=== PATIENT | female | born 1955 | race Caucasian/White ===

== ENCOUNTER 2016-09-24 12:18 | Observation (INO) | payer OTHER ==
[2016-09-24 12:26] VITALS: BP 114/69; PULSE 106; RESP 16; TEMP 97.6; O2SAT 97
[2016-09-24] MEDS ORDERED: SODIUM CHLORIDE 0.9% FLUSH 5 ML FLUSH IVF PRN (12:30)
[2016-09-24] MEDS ORDERED: SODIUM CHLOR 0.9% 1000 ML INJ 1,000 ML IV ONE (12:30)
[2016-09-24] MEDS ORDERED: OMEP20TA PO (13:05)
--- NOTE | 2016-09-24 13:20 | RADRPT ---
EXAM DATE/TIME: 09/24/2016 12:39 [facility] COMPARISON: No previous studies available for comparison. INDICATIONS : Left hip/pelvic pain. MEDICAL HISTORY : None. SURGICAL HISTORY : Tonsillectomy. ENCOUNTER: Initial ACUITY: 1 day PAIN SCORE: 5/10 LOCATION: Left hip/pelvis FINDINGS: A single frontal view of the pelvis demonstrates no evidence of fracture. The bony pelvic ring is in tact. Bony mineralization is normal. The soft tissues are intact. There is a degenerated disc at th e L5-S1 level. CONCLUSION: 1. Degenerated disc at L5-S1. No acute abnormality. Vicente Grover MD on September 24, 2016 at 13:18 Board Certified Radiologist. This report was verified electronically.
--- NOTE | 2016-09-24 13:21 | RADRPT ---
EXAM DATE/TIME: 09/24/2016 12:40 [facility] COMPARISON: PELVIS AP ONLY, September 24, 2016, 12:39. INDICATIONS : Left hip/femur pain post fall MEDICAL HISTORY : None. SURGICAL HISTORY : Tonsillectomy. ENCOUNTER: Initial ACUITY: 1 day PAIN SCORE: 5/10 LOCATION: Left hip/femur FINDINGS: Two view examination of the left femur demonstrates no evidence of fracture or dislocation. Bony min eralization is normal. The soft tissue structures are intact. CONCLUSION: 1. Normal examination of the left femur. Vicente Grover MD on September 24, 2016 at 13:18 Board Certified Radiologist. This report was verified electronically.
[2016-09-24 13:22] LABS: AUTOMATED NEUTROPHIL # 3.7 TH/MM3 (1.8-7.7); BASOPHIL % 0.7 % (0.0-2.0); EOSINOPHIL % 0.6 % (0.0-4.0); HEMATOCRIT 35.5 % (35.0-46.0); LYMPH % 16.3 % (9.0-44.0); LYMPHOCYTE # 0.8 TH/MM3 (1.0-4.8); MEAN CELL VOLUME 108.3 FL (80.0-100.0); MEAN CORPUSCULAR HEMOGLOBIN 36.1 PG (27.0-34.0); MEAN CORPUSCULAR HGB CONC 33.3 % (32.0-36.0); MONO % 9.9 % (0.0-8.0); NEUT % 72.5 % (16.0-70.0); PLATELET COUNT 80 TH/MM3 (150-450); RED BLOOD COUNT 3.27 MIL/MM3 (4.00-5.30); RED CELL DISTRIBUTION WIDTH 15.4 % (11.6-17.2); WHITE BLOOD COUNT 5.1 TH/MM3 (4.0-11.0)
[2016-09-24 13:26] LABS: HEMO FLAGS AUTO DIFF
[2016-09-24 13:46] LABS: ALKALINE PHOSPHATASE 175 U/L (45-117); ALT (GPT) 120 U/L (10-53); ANION GAP 18 MEQ/L (5-15); AST (GOT) 389 U/L (15-37); BICARBONATE 20.2 MEQ/L (21.0-32.0); BLOOD UREA NITROGEN 5 MG/DL (7-18); CHLORIDE 99 MEQ/L (98-107); GLOMERULAR FILTRATION RATE 57 ML/MIN (>89); POTASSIUM 3.1 MEQ/L (3.5-5.1); SODIUM (NA) 137 MEQ/L (136-145); TOTAL BILIRUBIN ADULT 4.7 MG/DL (0.2-1.0)
[2016-09-24 14:12] LABS: BANDS 4 % (0-6); EOSINOPHILS 2 % (0-4); METAMYELOCYTES 1 % (0-1); MYELOCYTES 3 % (0-0); NEUTROPHIL # MANUAL DIFF 4.2 TH/MM3 (1.8-7.7); PLATELET ESTIMATE SMEAR LOW (NORMAL); PLATELET MORPHOLOGY NORMAL (NORMAL); POLYS (SEG NEUTROPHILS) 75 % (16-70); SCAN/DIFF FINAL DIFF MANUAL; WBC DIFF SAMPLE 100
[2016-09-24] MEDS ORDERED: ONDANSETRON HCL 4 MG/2 ML VIAL IV PUSH ONE (15:00)
--- NOTE | 2016-09-24 16:21 | PD ---
HPI Chief Complaint: Fall Time Seen by Provider: 12:20 Travel History International Travel<30 days: No Contact w/Intl Traveler<30days: No Traveled to known affect area: No History of Present Illness HPI 61-year-old female presents from [facility] where she is there for alcohol detox. She is been having frequent falls and multiple episodes of nonbloody emesis. She denies any other concurrent complaints other than left hip pain. Pain is worse with movement. She denies other modifying factors. She states that she has fell from standing. She states she did not hit her head or black out. [facility] Past Medical History Diminished Hearing: No GERD: Yes Past Surgical History Tonsillectomy: Yes Other Surgery: Yes (BREAST IMPLANTS) Social History Alcohol Use: Yes (DAILY VODKA/LAST DRINK X 4 DAYS) Tobacco Use: Yes (1 PPD) Substance Use: No Allergies-Medications (Allergen,Severity, Reaction): Coded Allergies: No Known Allergies (Verified , 03/04/10) Reported Meds & Prescriptions Reported Meds & Active Scripts Active Reported Omeprazole 20 Mg Tab 20 Mg PO DAILY Review of Systems Except as stated in HPI: all other systems reviewed are Neg Physical Exam Narrative GENERAL: Disheveled, well-developed patient. SKIN: Warm and dry. HEAD: Normocephalic and atraumatic. EYES: No injection or drainage. ENT: No nasal drainage noted. NECK: Supple, trachea midline. CARDIOVASCULAR: Regular rate and rhythm RESPIRATORY: No increased effort. No accessory muscle use. GASTROINTESTINAL: Abdomen soft, non-tender, nondistended. EXTREMITIES: No edema.Pain with palpation of left hip, no pain with other joints , neurovascularly intact, no lacerations over, compartments soft. NEUROLOGICAL: Awake and alert. Motor and sensory grossly within normal limits. Normal speech. Data Data Last Documented VS Vital Signs Date Time Temp Pulse Resp B/P Pulse Ox O2 Delivery O2 Flow Rate FiO2 09/24/16 12:26 97.6 106 16 114/69 97 Orders Complete Blood Count With Diff (09/24/16 12:20) Comprehensive Metabolic Panel (09/24/16 12:20) Femur (Ap & Lat/2vws) (09/24/16 12:20) Pelvis, Ap Only (Routine) (09/24/16 12:20) Iv Access Insert/Monitor (09/24/16 12:20) Oximetry (09/24/16 12:20) Ecg Monitoring (09/24/16 12:20) Sodium Chloride 0.9% Flush (Ns Flush) (09/24/16 12:30) Sodium Chlor 0.9% 1000 Ml Inj (Ns 1000 M (09/24/16 12:30) Admit Order (Ed Use Only) (09/24/16 14:52) Us Abdomen Gallbladder (09/24/16 14:52) Ondansetron Inj (Zofran Inj) (09/24/16 15:00) Labs Laboratory Tests Test 09/24/16 13:10 White Blood Count 5.1 TH/MM3 Red Blood Count 3.27 MIL/MM3 Hemoglobin 11.8 GM/DL Hematocrit 35.5 % Mean Corpuscular Volume 108.3 FL Mean Corpuscular Hemoglobin 36.1 PG Mean Corpuscular Hemoglobin 33.3 % Concent Red Cell Distribution Width 15.4 % Platelet Count 80 TH/MM3 Mean Platelet Volume 9.6 FL Neutrophils (%) (Auto) 72.5 % Lymphocytes (%) (Auto) 16.3 % Monocytes (%) (Auto) 9.9 % Eosinophils (%) (Auto) 0.6 % Basophils (%) (Auto) 0.7 % Neutrophils # (Auto) 3.7 TH/MM3 Lymphocytes # (Auto) 0.8 TH/MM3 Monocytes # (Auto) 0.5 TH/MM3 Eosinophils # (Auto) 0.0 TH/MM3 Basophils # (Auto) 0.0 TH/MM3 CBC Comment AUTO DIFF Differential Total Cells 100 Counted Neutrophils % (Manual) 75 % Band Neutrophils % 4 % Lymphocytes % 11 % Monocytes % 4 % Eosinophils % 2 % Neutrophils # (Manual) 4.2 TH/MM3 Metamyelocytes 1 % Myelocytes 3 % Differential Comment FINAL DIFF MANUAL Platelet Estimate LOW Platelet Morphology Comment NORMAL Sodium Level 137 MEQ/L Potassium Level 3.1 MEQ/L Chloride Level 99 MEQ/L Carbon Dioxide Level 20.2 MEQ/L Anion Gap 18 MEQ/L Blood Urea Nitrogen 5 MG/DL Creatinine 0.99 MG/DL Estimat Glomerular Filtration 57 ML/MIN Rate Random Glucose 134 MG/DL Calcium Level 9.2 MG/DL Total Bilirubin 4.7 MG/DL Aspartate Amino Transf 389 U/L (AST/SGOT) Alanine Aminotransferase 120 U/L (ALT/SGPT) Alkaline Phosphatase 175 U/L Total Protein 6.8 GM/DL Albumin 3.1 GM/DL MDM Medical Decision Making Medical Screen Exam Complete: Yes Emergency Medical Condition: Yes Medical Record Reviewed: Yes (past history confirmed) Differential Diagnosis Fracture, strain, sprain, electrolyte abnormality, alcohol withdrawal... Narrative Course Will check blood work and dose with IV fluids and antiemetics and check x-ray imaging and reevaluate Labs reveal elevated bilirubin and hypokalemia without history of this. This is likely related to alcohol use discuss with GI for close follow-up. Patient does not qualify to go back to [facility] at this time so will be admitted for IV fluids, antiemetics and will place order for ultrasound while she is here. She will need continued treatment of her alcohol detox while she is here receiving treatment for her vomiting and falls with elevated bilirubin Physician Communication Physician Communication dr marc agrees to admit dr cardenas will follow, updated advanced practitioner Diagnosis Primary Impression: Elevated bilirubin Additional Impressions: Fall Qualified Code: W19.XXXA - Fall, initial encounter Vomiting Qualified Code: R11.10 - Vomiting, intractability of vomiting not specified, presence of nausea not specified, unspecified vomiting type Admitting Information Admitting Physician Requests: Surekha Lloyd MD Sep 24, 2016 16:21
--- NOTE | 2016-09-24 16:31 | PD.CONS ---
HPI History of Present Illness This is a 61 year old white female with history of chronic heavy alcohol intake presents to [facility] from [facility] for intractable nausea and vomiting for the past few days. States she couldn't keep water down, she was only on ice cubes for for past few days, but was able to tolerate some food yesterday. Reports heavy alcohol intake for the past 8 months. She averages about 1/3 of a 2L vodka bottle daily. She states, she fell sometimes today off her bed and landed on her right side. States, last drink was 6 days ago. She denies hematemesis, abdominal pain, melena or hematochezia. She reports one day history of diarrhea, but no more since she hasn't been eating. Labs revealed Bili of 4.7, AST 389, [id number], ALP 175. US pending. (Alejandra Patino) PFSH Past Medical History none Past Surgical History Breast implants Tonsillectomy (Alejandra Patino) Coded Allergies: No Known Allergies (Verified , 03/04/10) Medications Current Medications Medications (Trade) Dose Ordered Sig/Regina Route Start Time Stop Time Status Last Admin (NS Flush) 2 ml UNSCH PRN IVF 09/24/16 12:30 Family History no family history of liver cancer, or colon cancer Social History Smokes 1 pack a day Heavy alcohol intake for the past 8 months, quit 6 days ago No illicit drug use (Alejandra Patino) Review of Systems Constitutional: COMPLAINS OF: Fatigue, DENIES: Fever, Chills Endocrine: DENIES: Polyuria Eyes: DENIES: Double Vision Ears, nose, mouth, throat: DENIES: Hoarseness Respiratory: DENIES: Shortness of breath Cardiovascular: DENIES: Lower Extremity Edema Gastrointestinal: COMPLAINS OF: Diarrhea, Nausea, Vomiting, Anorexia, DENIES: Abdominal pain, Black stools, Bloody stools, Constipation, Difficulty Swallowing , Odynophagia, Swelling of Abdomen, Heartburn, Hematemesis Genitourinary: DENIES: Hematuria Musculoskeletal: DENIES: Neck pain Hematologic/lymphatic: DENIES: Bruising Immunologic/allergic: DENIES: Eczema Neurologic: DENIES: Abnormal gait Psychiatric: DENIES: Anxiety (Alejandra Patino) GI Exam Vitals I&O Vital Signs Date Time Temp Pulse Resp B/P Pulse Ox O2 Delivery O2 Flow Rate FiO2 09/24/16 12:26 97.6 106 16 114/69 97 Imaging Last Impressions Pelvis X-Ray 09/24/16 1220 Signed Impressions: Service Date/Time: Saturday, September 24, 2016 12:39 - CONCLUSION: 1. Degenerated disc at L5-S1. No acute abnormality. Vicente Grover MD Femur X-Ray 09/24/16 1220 Signed Impressions: Service Date/Time: Saturday, September 24, 2016 12:40 - CONCLUSION: 1. Normal examination of the left femur. Vicente Grover MD Laboratory Test 09/24/16 13:10 White Blood Count 5.1 TH/MM3 Red Blood Count 3.27 MIL/MM3 Hemoglobin 11.8 GM/DL Hematocrit 35.5 % Mean Corpuscular Volume 108.3 FL Mean Corpuscular Hemoglobin 36.1 PG Mean Corpuscular Hemoglobin 33.3 % Concent Red Cell Distribution Width 15.4 % Platelet Count 80 TH/MM3 Mean Platelet Volume 9.6 FL Neutrophils (%) (Auto) 72.5 % Lymphocytes (%) (Auto) 16.3 % Monocytes (%) (Auto) 9.9 % Eosinophils (%) (Auto) 0.6 % Basophils (%) (Auto) 0.7 % Neutrophils # (Auto) 3.7 TH/MM3 Lymphocytes # (Auto) 0.8 TH/MM3 Monocytes # (Auto) 0.5 TH/MM3 Eosinophils # (Auto) 0.0 TH/MM3 Basophils # (Auto) 0.0 TH/MM3 CBC Comment AUTO DIFF Differential Total Cells 100 Counted Neutrophils % (Manual) 75 % Band Neutrophils % 4 % Lymphocytes % 11 % Monocytes % 4 % Eosinophils % 2 % Neutrophils # (Manual) 4.2 TH/MM3 Metamyelocytes 1 % Myelocytes 3 % Differential Comment FINAL DIFF MANUAL Platelet Estimate LOW Platelet Morphology Comment NORMAL Sodium Level 137 MEQ/L Potassium Level 3.1 MEQ/L Chloride Level 99 MEQ/L Carbon Dioxide Level 20.2 MEQ/L Anion Gap 18 MEQ/L Blood Urea Nitrogen 5 MG/DL Creatinine 0.99 MG/DL Estimat Glomerular Filtration 57 ML/MIN Rate Random Glucose 134 MG/DL Calcium Level 9.2 MG/DL Total Bilirubin 4.7 MG/DL Aspartate Amino Transf 389 U/L (AST/SGOT) Alanine Aminotransferase 120 U/L (ALT/SGPT) Alkaline Phosphatase 175 U/L Total Protein 6.8 GM/DL Albumin 3.1 GM/DL Physical Examination HEENT: normocephalic; atraumatic; no jaundice. NECK: Neck is supple, no JVD, no lymphadenopathy. CHEST: Chest is clear to auscultation and percussion. CARDIAC: Regular rate and rhythm with no murmur gallop or rubs. ABDOMEN: Soft, nondistended, nontender; no hepatosplenomegaly; bowel sounds are present in all four quadrants. EXTREMITIES: No clubbing, cyanosis, or edema. SKIN: Normal; no rash; no jaundice. [employer]: No focal deficits; alert and oriented times three. (Alejandra Patino) Assessment and Plan Plan - Elevated transaminitis consistent with alcoholic pattern- chronic heavy alcohol intake presents to [facility] from [facility] for intractable nausea and vomiting for the past few days. States she couldn't keep water down, she was only on ice cubes for for past few days, but was able to tolerate some food yesterday. Reports heavy alcohol intake for the past 8 months. averages 1/3 of a 2L vodka bottle daily. She states, she fell sometimes today off her bed and landing on her right side. States, last drink was 6 days ago. She denies hematemesis, abdominal pain, melena or hematochezia. She reports one day history of diarrhea, but no more since she hasn't been eating. Labs revealed Bili of 4.7, AST 389, [id number], ALP 175. US pending. - Hypokalemia per attending - Alcohol abuse- counselled in regards to cessation Plan: - Await US, if that's negative, can have clears - PARAM, AMA, ASMA, hepatitis panel - Alcohol cessation - LFTs in am - Supportive care - Patient seen and examined by Dr. Rowley and myself and this note is written on his behalf. (Alejandra Patino) Physician Comments Patient was seen and examined, agree with above note and plan, labs for AM ( Iris Rowley MD) Alejandra Patino Sep 24, 2016 16:31 Iris Rowley MD Sep 24, 2016 20:57
--- NOTE | 2016-09-24 17:13 | RADRPT ---
EXAM DATE/TIME: 09/24/2016 15:19 [facility] COMPARISON: No previous studies available for comparison. INDICATIONS : Nausea/vomiting. MEDICAL HISTORY : Gastroesophageal reflux disease. SURGICAL HISTORY : Tonsillectomy. Breast implants. ENCOUNTER: Initial ACUITY: 1 day PAIN SCORE: 4/10 LOCATION: Right upper quadrant MEASUREMENTS: LIVER: 19.4 cm length COMMON DUCT: 6 mm RIGHT KIDNEY: 11.8 x 6.0 x 4.4 cm FINDINGS: LIVER: Mildly heterogeneous echotexture without evidence of focal mass or biliary ductal dilatation. COMMON DUCT: No intraluminal mass or stone visualized. GALLBLADDER: Contains no stones, demonstrates no wall thickening or pericholecystic fluid. PANCREAS: The visualized portions are within normal limits. RIGHT KIDNEY: No evidence of hydronephrosis, stone, or mass. CONCLUSION: Mildly heterogeneous liver. No focal findings. Miguelangel Hernandez MD on September 24, 2016 at 17:10 Board Certified Radiologist. This report was verified electronically.
[2016-09-24] MEDS ORDERED: RESP: ALBUTEROL 2.5 MG/IPRATROPIUM 0.5 MG NEB (PRN) NEB (17:30)
[2016-09-24] MEDS ORDERED: LORazepam 1 MG TAB PO PRN (17:30)
[2016-09-24] MEDS ORDERED: FLUMAZENIL 1 MG/10 ML VIAL IV PUSH PRN (17:30)
[2016-09-24] MEDS ORDERED: LORazepam 2 MG TAB PO PRN (17:30)
[2016-09-24] MEDS ORDERED: ONDANSETRON HCL 4 MG/2 ML VIAL IVP PRN (17:30)
[2016-09-24] MEDS ORDERED: NALOXONE HCL 0.4 MG/ML AMP IV PRN (17:30)
[2016-09-24] MEDS ORDERED: SODIUM CHLORIDE 0.9% FLUSH 5 ML FLUSH FLUSH PRN (17:30)
[2016-09-24] MEDS ORDERED: cloNIDine HCL 0.1 MG TAB PO PRN (17:30)
[2016-09-24] MEDS ORDERED: SODIUM CHLORIDE 0.9% FLUSH 5 ML FLUSH IV FLUSH PRN (17:30)
[2016-09-24] MEDS ORDERED: ACETAMINOPHEN 325 MG TAB PO PRN ×2 (17:30)
[2016-09-24] MEDS ORDERED: LORazepam 2 MG/ML VIAL IV PUSH PRN ×4 (17:30)
[2016-09-24 17:40] VITALS: BP 112/63; PULSE 88; RESP 15; O2SAT 97
--- NOTE | 2016-09-24 17:42 | HHI.HP ---
HPI Service [facility] Hospitalists Primary Care Physician Unknown Admission Diagnosis falls, vomiting Diagnoses: (1) Elevated bilirubin (2) Alcohol abuse (3) Nicotine dependence (4) Transaminitis (5) Fall Chief Complaint: Intractable nausea and vomiting, fall, elevated liver enzymes Travel History International Travel<30 Days: No Contact w/Intl Traveler <30 Da: No Traveled to Known Affected Are: No History of Present Illness 61-year-old female with a history of chronic alcohol abuse, GERD was brought to the ED from [facility] for evaluation of intractable nausea and vomiting several days with associated abdominal pain and noticeable jaundice as well as a fall. Patient reports maybe alcohol intake over the past 8 months and average drink 1/3 of a 2L vodka bottle daily. She states, she fell sometimes today off her bed and landing on her right side. She denies any LOC or head trauma.Since admission to the she has not been drinking any alcohol and this over the past 4-5 days. She has had significant weight loss. Currently she denies any hematemesis, hematochezia or melena. Labs in the ED reveals Labs revealed Bili of 4.7, AST 389, CMU375, ALP 175 fotr which gastroenterology has been consulted Review of Systems Other Other 12 systems reviewed and are negative except for the one mentioned in the history of present illness Past Family Social History Past Medical History GERD Chronic alcohol abuse Nicotinic dependence Past Surgical History Breast implants Tonsillectomy Reported Medications Prilosec Allergies: Coded Allergies: No Known Allergies (Verified , 03/04/10) Family History Father from complication of lung cancer Mother had CVA Social History Smokes 1 pack a day Heavy alcohol intake for the past 8 months, quit 6 days ago No illicit drug use Physical Exam Vital Signs Vital Signs Date Time Temp Pulse Resp B/P Pulse Ox O2 Delivery O2 Flow Rate FiO2 09/24/16 12:26 97.6 106 16 114/69 97 Physical Exam GENERAL: This is a well-nourished, well-developed patient, in no apparent distress. SKIN: No rashes, ecchymoses or lesions. Cool and dry. HEAD: Atraumatic. Normocephalic. No temporal or scalp tenderness. EYES: Pupils equal round and reactive. Extraocular motions intact. No scleral icterus. No injection or drainage. ENT: Nose without bleeding, purulent drainage or septal hematoma. Throat without erythema, tonsillar hypertrophy or exudate. Uvula midline. Airway patent. NECK: Trachea midline. No JVD or lymphadenopathy. Supple, nontender, no meningeal signs. CARDIOVASCULAR: Regular rate and rhythm without murmurs, gallops, or rubs. RESPIRATORY: Clear to auscultation. Breath sounds equal bilaterally. No wheezes , rales, or rhonchi. GASTROINTESTINAL: Abdomen soft, non-tender, nondistended. No hepato-splenomegaly , or palpable masses. No guarding. MUSCULOSKELETAL: Extremities without clubbing, cyanosis, or edema. No joint tenderness, effusion, or edema noted. No calf tenderness. Negative Homans sign bilaterally. NEUROLOGICAL: Awake and alert. Cranial nerves II through XII intact. Motor and sensory grossly within normal limits. Five out of 5 muscle strength in all muscle groups. Normal speech. Laboratory Laboratory Tests Test 09/24/16 13:10 White Blood Count 5.1 Red Blood Count 3.27 Hemoglobin 11.8 Hematocrit 35.5 Mean Corpuscular Volume 108.3 Mean Corpuscular Hemoglobin 36.1 Mean Corpuscular Hemoglobin 33.3 Concent Red Cell Distribution Width 15.4 Platelet Count 80 Mean Platelet Volume 9.6 Neutrophils (%) (Auto) 72.5 Lymphocytes (%) (Auto) 16.3 Monocytes (%) (Auto) 9.9 Eosinophils (%) (Auto) 0.6 Basophils (%) (Auto) 0.7 Neutrophils # (Auto) 3.7 Lymphocytes # (Auto) 0.8 Monocytes # (Auto) 0.5 Eosinophils # (Auto) 0.0 Basophils # (Auto) 0.0 CBC Comment AUTO DIFF Differential Total Cells 100 Counted Neutrophils % (Manual) 75 Band Neutrophils % 4 Lymphocytes % 11 Monocytes % 4 Eosinophils % 2 Neutrophils # (Manual) 4.2 Metamyelocytes 1 Myelocytes 3 Differential Comment FINAL DIFF MANUAL Platelet Estimate LOW Platelet Morphology Comment NORMAL Sodium Level 137 Potassium Level 3.1 Chloride Level 99 Carbon Dioxide Level 20.2 Anion Gap 18 Blood Urea Nitrogen 5 Creatinine 0.99 Estimat Glomerular Filtration 57 Rate Random Glucose 134 Calcium Level 9.2 Total Bilirubin 4.7 Aspartate Amino Transf 389 (AST/SGOT) Alanine Aminotransferase 120 (ALT/SGPT) Alkaline Phosphatase 175 Total Protein 6.8 Albumin 3.1 Result Diagram: 09/24/16 1310 09/24/16 1310 Imaging Last Impressions Pelvis X-Ray 09/24/16 1220 Signed Impressions: Service Date/Time: Saturday, September 24, 2016 12:39 - CONCLUSION: 1. Degenerated disc at L5-S1. No acute abnormality. Vicente Grover MD Femur X-Ray 09/24/16 1220 Signed Impressions: Service Date/Time: Saturday, September 24, 2016 12:40 - CONCLUSION: 1. Normal examination of the left femur. Vicente Grover MD Assessment and Plan Problem List: (1) Transaminitis ICD Code: R74.0 Status: Acute (2) Alcohol abuse ICD Code: F10.10 Status: Acute (3) Nicotine dependence ICD Code: F17.200 Status: Acute (4) Fall ICD Code: W19.XXXA Status: Acute (5) Metabolic acidosis ICD Code: E87.2 Status: Acute Assessment and Plan 61-year-old female with 1-Transaminitis: Patient with a history of Heavy alcohol abuse, abdominal ultrasound pending. Gastroenterology has been consulted and PARAM, AMA, ASMA, hepatitis panel pending. Continue conservative treatment 2-Intractable nausea and vomiting: Abdominal ultrasound and if negative start clears. Gentle IV fluid hydration. Treatment with antiemetic 3-Alcohol abuse: Counseled to quit, start Rally pack, CIWS per protocol, seizure precaution 4-Tobacco abuse: Counseled to quit, start nicotinic patch 5-Fall: s/p Mechanical fall. Pelvic and femur x-ray noted and reviewed by me without any finding of fracture. PT consult and fall precaution 6-Hypokalemia: Replace electrolyte and monitor 7-Metabolic acidosis: Consider Bicarb tx if no improvement 8-GERD: PPI 9-DVT prophylaxis: Bilateral SCDs Code Status Full code Discussed Condition With Patient, , ED physician Problem Qualifiers (1) Fall: Qualified Code: W19.XXXA - Fall, initial encounter Emeka Silva MD Sep 24, 2016 17:42
[2016-09-24] MEDS: POTASSIUM CHLOR 20 MEQ PREMIX 100 ML IV SCH ×2 (18:56→21:19)
[2016-09-24] MEDS: SODIUM CHLOR 0.9% 1000 ML INJ 1,000 ML IV SCH (18:56)
[2016-09-24] MEDS ORDERED: SODIUM CHLORIDE 0.9% FLUSH 5 ML FLUSH FLUSH SCH (21:00)
[2016-09-24] MEDS: SODIUM CHLORIDE 0.9% FLUSH 5 ML FLUSH IV FLUSH SCH (21:07)
[2016-09-24] MEDS: NICOTINE 21 MG/24 HR PATCH TD SCH (22:07)
[2016-09-24 23:13] VITALS: BP 140/79; PULSE 86; RESP 16; TEMP 96; O2SAT 100
[2016-09-25] VITALS (7 sets, daily range): BP systolic 115–159; BP diastolic 73–80; PULSE 80–109; RESP 16–20; TEMP 96.3–98.4; O2SAT 96–100
[2016-09-25 07:51] LABS: AUTOMATED NEUTROPHIL # 2.5 TH/MM3 (1.8-7.7); BASOPHIL % 0.9 % (0.0-2.0); EOSINOPHIL % 1.3 % (0.0-4.0); HEMATOCRIT 32.2 % (35.0-46.0); LYMPH % 20.3 % (9.0-44.0); LYMPHOCYTE # 0.8 TH/MM3 (1.0-4.8); MEAN CELL VOLUME 107.2 FL (80.0-100.0); MEAN CORPUSCULAR HEMOGLOBIN 36.6 PG (27.0-34.0); MEAN CORPUSCULAR HGB CONC 34.2 % (32.0-36.0); MONO % 9.5 % (0.0-8.0); PLATELET COUNT 64 TH/MM3 (150-450); RED CELL DISTRIBUTION WIDTH 14.9 % (11.6-17.2); WHITE BLOOD COUNT 3.7 TH/MM3 (4.0-11.0)
--- NOTE | 2016-09-25 07:56 | HHI.PR ---
Subjective Remarks Follow up Transaminitis/Intractable nausea and vomiting/alcohol abuse 09/25/16-patient seen and examined; she did tolerate clears last night. alert and oriented x 3; no acute event overnight. Afebrile Objective Vitals Vital Signs Date Time Temp Pulse Resp B/P Pulse Ox O2 Delivery O2 Flow Rate FiO2 09/25/16 03:57 97.6 80 20 141/74 100 09/25/16 00:14 96.3 88 18 142/76 99 09/24/16 23:13 96.0 86 16 140/79 100 09/24/16 17:40 88 15 112/63 97 Room Air 09/24/16 12:26 97.6 106 16 114/69 97 Result Diagram: 09/24/16 1310 09/24/16 1310 Imaging Last Impressions Gall Bladder Ultrasound 09/24/16 1452 Signed Impressions: Service Date/Time: Saturday, September 24, 2016 15:19 - CONCLUSION: Mildly heterogeneous liver. No focal findings. Miguelangel Hernandez MD Pelvis X-Ray 09/24/16 1220 Signed Impressions: Service Date/Time: Saturday, September 24, 2016 12:39 - CONCLUSION: 1. Degenerated disc at L5-S1. No acute abnormality. Vicente Grover MD Femur X-Ray 09/24/16 1220 Signed Impressions: Service Date/Time: Saturday, September 24, 2016 12:40 - CONCLUSION: 1. Normal examination of the left femur. Vicente Grover MD Objective Remarks GENERAL: NAD SKIN: Warm and dry. HEAD: Normocephalic. EYES: No scleral icterus. No injection or drainage. NECK: Supple, trachea midline. No JVD or lymphadenopathy. CARDIOVASCULAR: Regular rate and rhythm without murmurs, gallops, or rubs. RESPIRATORY: Breath sounds equal bilaterally. No accessory muscle use. GASTROINTESTINAL: Abdomen soft, non-tender, nondistended. MUSCULOSKELETAL: No cyanosis, or edema. BACK: Nontender without obvious deformity. No CVA tenderness. A/P Problem List: (1) Transaminitis ICD Code: R74.0 Status: Acute (2) Alcohol abuse ICD Code: F10.10 Status: Acute (3) Nicotine dependence ICD Code: F17.200 Status: Chronic (4) Fall ICD Code: W19.XXXA Status: Acute (5) Metabolic acidosis ICD Code: E87.2 Status: Acute Assessment and Plan 61-year-old female with 1-Transaminitis: Patient with a history of Heavy alcohol abuse, abdominal ultrasound negative. Appreciate input from Gastroenterology. PARAM, AMA, ASMA, hepatitis panel pending. Continue conservative treatment 2-Intractable nausea and vomiting: Resolved. Abdominal ultrasound unremarkable. Advance diet to Full Liquid. Gentle IV fluid hydration. Treatment with antiemetic 3-Alcohol abuse: Counseled to quit, continue Rally pack, CIWS per protocol, seizure precaution 4-Tobacco abuse: Counseled to quit, on nicotinic patch 5-Fall: s/p Mechanical fall. Pelvic and femur x-ray without any finding of fracture. PT consult and fall precaution 6-Hypokalemia: Replace electrolyte and monitor. BMP pending 7-Metabolic acidosis: BMP pending and Consider Bicarb tx if no improvement 8-GERD: PPI 9-DVT prophylaxis: Bilateral SCDs Likely discharge to today Problem Qualifiers (1) Fall: Qualified Code: W19.XXXA - Fall, initial encounter Emeka Silva MD Sep 25, 2016 07:56
[2016-09-25 08:08] LABS: HEMO FLAGS AUTO DIFF
[2016-09-25 08:33] LABS: ALKALINE PHOSPHATASE 145 U/L (45-117); ALT (GPT) 113 U/L (10-53); ANION GAP 16 MEQ/L (5-15); AST (GOT) 302 U/L (15-37); BICARBONATE 20.6 MEQ/L (21.0-32.0); BLOOD UREA NITROGEN 4 MG/DL (7-18); CHLORIDE 105 MEQ/L (98-107); GLOMERULAR FILTRATION RATE 102 ML/MIN (>89); SODIUM (NA) 142 MEQ/L (136-145); TOTAL BILIRUBIN ADULT 3.4 MG/DL (0.2-1.0)
[2016-09-25 08:42] LABS: POTASSIUM 2.8 MEQ/L (3.5-5.1)
[2016-09-25] MEDS ORDERED: POTASSIUM CHLORIDE 20 MEQ CONTROLLED RELEASE TAB PO ONE (09:00)
[2016-09-25] MEDS ORDERED: POTASSIUM CHLORIDE 25 MEQ EFFERVESCENT TAB PO ONE (09:00)
[2016-09-25] MEDS: SODIUM CHLORIDE 0.9% FLUSH 5 ML FLUSH IV FLUSH SCH ×2 (09:00→21:00)
[2016-09-25 09:09] LABS: BANDS 9 % (0-6); EOSINOPHILS 1 % (0-4); MYELOCYTES 2 % (0-0); PLATELET ESTIMATE SMEAR LOW (NORMAL); PLATELET MORPHOLOGY NORMAL (NORMAL); POLYS (SEG NEUTROPHILS) 70 % (16-70); SCAN/DIFF FINAL DIFF MANUAL; WBC DIFF SAMPLE 100
[2016-09-25] MEDS: FOLIC ACID 1 MG TAB PO SCH (09:16)
[2016-09-25] MEDS: MULTIVITAMINS/MINERALS THERAPEUTIC TAB PO SCH (09:16)
[2016-09-25] MEDS: THIAMINE HCL 100 MG TAB PO SCH (09:16)
[2016-09-25] MEDS: PANTOPRAZOLE SODIUM 40 MG VIAL IV PUSH SCH (09:17)
[2016-09-25] MEDS: NICOTINE 21 MG/24 HR PATCH TD SCH (09:40)
--- NOTE | 2016-09-25 12:33 | HHI.GIFU ---
Subjective Remarks Resting in bed. C/O feeling "foggy/loopy." No n/v. No abdominal pain. ( Michelle Lagos) Objective Vitals I&O Vital Signs Date Time Temp Pulse Resp B/P Pulse Ox O2 Delivery O2 Flow Rate FiO2 09/25/16 09:56 97.8 87 16 159/80 99 09/25/16 03:57 97.6 80 20 141/74 100 09/25/16 00:14 96.3 88 18 142/76 99 09/24/16 23:13 96.0 86 16 140/79 100 09/24/16 17:40 88 15 112/63 97 Room Air Laboratory Laboratory Tests Test 09/24/16 09/24/16 09/25/16 13:10 17:30 06:47 White Blood Count 5.1 3.7 Red Blood Count 3.27 3.00 Hemoglobin 11.8 11.0 Hematocrit 35.5 32.2 Mean Corpuscular Volume 108.3 107.2 Mean Corpuscular Hemoglobin 36.1 36.6 Mean Corpuscular Hemoglobin 33.3 34.2 Concent Red Cell Distribution Width 15.4 14.9 Platelet Count 80 64 Mean Platelet Volume 9.6 9.7 Neutrophils (%) (Auto) 72.5 68.0 Lymphocytes (%) (Auto) 16.3 20.3 Monocytes (%) (Auto) 9.9 9.5 Eosinophils (%) (Auto) 0.6 1.3 Basophils (%) (Auto) 0.7 0.9 Neutrophils # (Auto) 3.7 2.5 Lymphocytes # (Auto) 0.8 0.8 Monocytes # (Auto) 0.5 0.4 Eosinophils # (Auto) 0.0 0.0 Basophils # (Auto) 0.0 0.0 CBC Comment AUTO DIFF AUTO DIFF Differential Total Cells 100 100 Counted Neutrophils % (Manual) 75 70 Band Neutrophils % 4 9 Lymphocytes % 11 15 Monocytes % 4 3 Eosinophils % 2 1 Neutrophils # (Manual) 4.2 3.0 Metamyelocytes 1 Myelocytes 3 2 Differential Comment FINAL DIFF FINAL DIFF MANUAL MANUAL Platelet Estimate LOW LOW Platelet Morphology Comment NORMAL NORMAL Sodium Level 137 142 Potassium Level 3.1 2.8 Chloride Level 99 105 Carbon Dioxide Level 20.2 20.6 Anion Gap 18 16 Blood Urea Nitrogen 5 4 Creatinine 0.99 0.60 Estimat Glomerular Filtration 57 102 Rate Random Glucose 134 65 Calcium Level 9.2 8.4 Total Bilirubin 4.7 3.4 Aspartate Amino Transf 389 302 (AST/SGOT) Alanine Aminotransferase 120 113 (ALT/SGPT) Alkaline Phosphatase 175 145 Total Protein 6.8 5.9 Albumin 3.1 2.6 Hepatitis A IgM Antibody NEGATIVE Hepatitis B Surface Antigen NEGATIVE Hepatitis B Core IgM Antibody NEGATIVE Hepatitis C Antibody NEGATIVE Red Cell Morphology Comment Imaging Last Impressions Gall Bladder Ultrasound 09/24/16 1452 Signed Impressions: Service Date/Time: Saturday, September 24, 2016 15:19 - CONCLUSION: Mildly heterogeneous liver. No focal findings. Miguelangel Hernandez MD Pelvis X-Ray 09/24/16 1220 Signed Impressions: Service Date/Time: Saturday, September 24, 2016 12:39 - CONCLUSION: 1. Degenerated disc at L5-S1. No acute abnormality. Vicente Grover MD Femur X-Ray 09/24/16 1220 Signed Impressions: Service Date/Time: Saturday, September 24, 2016 12:40 - CONCLUSION: 1. Normal examination of the left femur. Vicente Grover MD Physical Exam HEENT: Normocephalic; atraumatic; jaundice. Throat is clear. NECK: Neck is supple, no JVD, no lymphadenopathy. CHEST: CTA CARDIAC: Regular rate and rhythm with no murmur gallop or rubs. ABDOMEN: Soft, nondistended, mild ruq tenderness; hepatosplenomegaly; bowel sounds are present in all four quadrants. EXTREMITIES: No clubbing, cyanosis, or edema. SKIN: Normal; no rash; no jaundice. 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 (Michelle Lagos) Assessment and Plan Plan ASSESSMENT: - Alcoholic hepatitis, elevated lfts. Pt with hx of chronic heavy alcohol intake presents to [facility] from [facility] for intractable nausea and vomiting. Reports heavy alcohol intake for the past 8 months. averages 1/3 of a 2L vodka bottle daily. Gall Bladder Ultrasound (09/24/16)---> Mildly heterogeneous liver. Hepatitis negative. PARAM/AMA/ASMA pending. LFTs improved today, T. Bili 3.4, AST 302, ALT 113, Alk Phosph 145. - C/O Fogginess/loopiness, frequent falls. Unclear if this is related to DT's vs. hepatic encephalopathy vs. other. Will check ammonia and start on Lactulose daily and adjust accordingly. - N/V. Resolved. - Hypokalemia per attending - Alcohol abuse- counselled in regards to cessation Plan: - ROXIE - Ammonia level - Lactulose 30mL po daily - PT/INR today - Await PARAM, AMA, ASMA - LFTs in am - D/W pt, , and daughter importance of complete etoh cessation and plan from GI standpoint - Supportive care - Patient seen and examined by Dr. Rowley and myself and this note is written on his behalf. (Michelle Lagos) Physician Comments Patient was seen and examined, agree with above note and plan, avoid ETOH ( Iris Rowley MD) Michelle Lagos Sep 25, 2016 12:33 Iris Rowley MD Sep 25, 2016 20:13
[2016-09-25 17:02] LABS: PROTHROMBIN TIME - PATIENT 11.1 SEC (9.8-11.6)
[2016-09-25] MEDS: LACTULOSE SYRUP 20 GM/30 ML CUP PO SCH (17:06)
[2016-09-25] MEDS: SODIUM CHLOR 0.9% 1000 ML INJ 1,000 ML IV SCH (17:49)
[2016-09-26] VITALS (7 sets, daily range): BP systolic 115–136; BP diastolic 70–80; PULSE 61–102; RESP 16–20; TEMP 96.8–98.2; O2SAT 95–99
--- NOTE | 2016-09-26 08:49 | HHI.PR ---
Subjective Remarks Follow up Transaminitis/Intractable nausea and vomiting/alcohol abuse 09/25/16-patient seen and examined; she did tolerate clears last night. alert and oriented x 3; no acute event overnight. Afebrile 09/26/16-patient seen and examined;. Of confusion overnight and agitation for which she was given Ativan. This morning patient's lethargic however arousable. Afebrile. Objective Vitals Vital Signs Date Time Temp Pulse Resp B/P Pulse Ox O2 Delivery O2 Flow Rate FiO2 09/26/16 00:06 98.0 101 20 135/70 96 09/25/16 19:12 97.9 109 16 115/77 98 09/25/16 15:58 98.0 97 16 131/73 96 09/25/16 13:36 93 152/76 100 09/25/16 12:51 98.4 80 16 133/80 98 09/25/16 09:56 97.8 87 16 159/80 99 I/O 09/25/16 09/25/16 09/25/16 09/26/16 09/26/16 09/26/16 07:00 15:00 23:00 07:00 15:00 23:00 Intake Total 1100 ml Balance 1100 ml Intake Oral 1040 ml IV Total 60 ml # Voids 2 5 # Bowel Movements 2 Result Diagram: 09/25/16 0647 09/25/16 0647 Objective Remarks GENERAL: NAD SKIN: Warm and dry. HEAD: Normocephalic. EYES: No scleral icterus. No injection or drainage. NECK: Supple, trachea midline. No JVD or lymphadenopathy. CARDIOVASCULAR: Regular rate and rhythm without murmurs, gallops, or rubs. RESPIRATORY: Breath sounds equal bilaterally. No accessory muscle use. GASTROINTESTINAL: Abdomen soft, non-tender, nondistended. MUSCULOSKELETAL: No cyanosis, or edema. BACK: Nontender without obvious deformity. No CVA tenderness. A/P Problem List: (1) Transaminitis ICD Code: R74.0 Status: Acute (2) Alcohol abuse ICD Code: F10.10 Status: Acute (3) Nicotine dependence ICD Code: F17.200 Status: Chronic (4) Fall ICD Code: W19.XXXA Status: Acute (5) Metabolic acidosis ICD Code: E87.2 Status: Acute (6) Hyperammonemia ICD Code: E72.20 Status: Acute Assessment and Plan 61-year-old female with 1-Transaminitis: Patient with a history of Heavy alcohol abuse, abdominal ultrasound negative. Appreciate input from Gastroenterology. PARAM, AMA, ASMA pending, hepatitis panel negative. Continue conservative treatment 2-Intractable nausea and vomiting: Resolved. Abdominal ultrasound unremarkable. Continue with healthy diet and Gentle IV fluid hydration. Treatment with antiemetic 3-Alcohol abuse: Counseled to quit, continue Rally pack, CIWS per protocol, seizure precaution 4-Tobacco abuse: Counseled to quit, on nicotinic patch 5-Fall: s/p Mechanical fall. Pelvic and femur x-ray without any finding of fracture. PT to treat and fall precaution 6-Hypokalemia: Replace electrolyte and monitor. BMP pending 7-Metabolic acidosis: Improving ;BMP pending this a.m. and Consider Bicarb tx if no improvement 8-GERD: PPI 9-DVT prophylaxis: Bilateral SCDs 10-Mild Hyperammonemia: Continue with lactulose 30 mg daily and monitor ammonia level Problem Qualifiers (1) Fall: Qualified Code: W19.XXXA - Fall, initial encounter Emeka Silva MD Sep 26, 2016 08:49
[2016-09-26] MEDS: MULTIVITAMINS/MINERALS THERAPEUTIC TAB PO SCH (09:39)
[2016-09-26] MEDS: THIAMINE HCL 100 MG TAB PO SCH (09:39)
[2016-09-26] MEDS: FOLIC ACID 1 MG TAB PO SCH (09:39)
[2016-09-26] MEDS: NICOTINE 21 MG/24 HR PATCH TD SCH (09:40)
[2016-09-26] MEDS: PANTOPRAZOLE SODIUM 40 MG VIAL IV PUSH SCH (09:40)
[2016-09-26] MEDS: LACTULOSE SYRUP 20 GM/30 ML CUP PO SCH ×2 (09:40→22:42)
[2016-09-26] MEDS: SODIUM CHLORIDE 0.9% FLUSH 5 ML FLUSH IV FLUSH SCH ×2 (09:41→21:00)
[2016-09-26 11:28] LABS: ANA SCREEN NEG (NEG)
[2016-09-26 12:20] LABS: AUTOMATED NEUTROPHIL # 2.5 TH/MM3 (1.8-7.7); BASOPHIL % 0.9 % (0.0-2.0); EOSINOPHIL # 0.1 TH/MM3 (0-0.4); EOSINOPHIL % 1.7 % (0.0-4.0); HEMATOCRIT 36.4 % (35.0-46.0); LYMPHOCYTE # 0.8 TH/MM3 (1.0-4.8); MEAN CELL VOLUME 107.3 FL (80.0-100.0); MEAN CORPUSCULAR HEMOGLOBIN 35.9 PG (27.0-34.0); MEAN CORPUSCULAR HGB CONC 33.5 % (32.0-36.0); MONO % 12.4 % (0.0-8.0); PLATELET COUNT 85 TH/MM3 (150-450); WHITE BLOOD COUNT 3.8 TH/MM3 (4.0-11.0)
[2016-09-26 12:25] LABS: HEMO FLAGS AUTO DIFF
--- NOTE | 2016-09-26 13:28 | HHI.GIFU ---
Subjective Remarks Resting in bed. More confused today. Trying to climb out of bed. Restless. (Michelle Lagos) Objective Vitals I&O Vital Signs Date Time Temp Pulse Resp B/P Pulse Ox O2 Delivery O2 Flow Rate FiO2 09/26/16 11:48 97.9 90 16 124/75 96 09/26/16 08:52 96.8 77 18 129/78 99 09/26/16 00:06 98.0 101 20 135/70 96 09/25/16 19:12 97.9 109 16 115/77 98 09/25/16 15:58 98.0 97 16 131/73 96 09/25/16 13:36 93 152/76 100 I/O 09/25/16 09/25/16 09/25/16 09/26/16 09/26/16 09/26/16 07:00 15:00 23:00 07:00 15:00 23:00 Intake Total 1100 ml Balance 1100 ml Intake Oral 1040 ml IV Total 60 ml # Voids 2 5 # Bowel Movements 2 Laboratory Laboratory Tests Test 09/25/16 09/26/16 16:32 10:56 Prothrombin Time 11.1 Prothromb Time International 1.0 Ratio Ammonia 39 White Blood Count 3.8 Red Blood Count 3.40 Hemoglobin 12.2 Hematocrit 36.4 Mean Corpuscular Volume 107.3 Mean Corpuscular Hemoglobin 35.9 Mean Corpuscular Hemoglobin 33.5 Concent Red Cell Distribution Width 15.0 Platelet Count 85 Mean Platelet Volume 10.4 Neutrophils (%) (Auto) 65.0 Lymphocytes (%) (Auto) 20.0 Monocytes (%) (Auto) 12.4 Eosinophils (%) (Auto) 1.7 Basophils (%) (Auto) 0.9 Neutrophils # (Auto) 2.5 Lymphocytes # (Auto) 0.8 Monocytes # (Auto) 0.5 Eosinophils # (Auto) 0.1 Basophils # (Auto) 0.0 CBC Comment AUTO DIFF Imaging Last Impressions Gall Bladder Ultrasound 09/24/16 1452 Signed Impressions: Service Date/Time: Saturday, September 24, 2016 15:19 - CONCLUSION: Mildly heterogeneous liver. No focal findings. Miguelangel Hernandez MD Pelvis X-Ray 09/24/16 1220 Signed Impressions: Service Date/Time: Saturday, September 24, 2016 12:39 - CONCLUSION: 1. Degenerated disc at L5-S1. No acute abnormality. Vicente Grover MD Femur X-Ray 09/24/16 1220 Signed Impressions: Service Date/Time: Saturday, September 24, 2016 12:40 - CONCLUSION: 1. Normal examination of the left femur. Vicente Grover MD Physical Exam HEENT: Normocephalic; atraumatic; jaundice. Throat is clear. CHEST: CTA CARDIAC: Regular rate and rhythm with no murmur gallop or rubs. ABDOMEN: Soft, nondistended, nontender; hepatosplenomegaly; bowel sounds are present in all four quadrants. EXTREMITIES: No clubbing, cyanosis, or edema. SKIN: Normal; no rash; no jaundice. 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 (Michelle Lagos) Assessment and Plan Plan ASSESSMENT: - AMS, likely multifactorial- combination of hepatic encephalopathy and DTs. Ammonia was 39 yesterday. Much more confused today. Will increase Lactulose to BID and add Xifaxan. DT precautions per primary - Alcoholic hepatitis, elevated lfts. Pt with hx of chronic heavy alcohol intake presents to [facility] from [facility]] for intractable nausea and vomiting. Reports heavy alcohol intake for the past 8 months. averages 1/3 of a 2L vodka bottle daily. Gall Bladder Ultrasound (09/24/16)---> Mildly heterogeneous liver. Hepatitis negative. PARAM negative, AMA pending, ASMA negative. LFTs improving, T. Bili 3.4, AST 302, ALT 113, Alk Phosph 145 - N/V. Resolved. - Hypokalemia per attending - Alcohol abuse- counselled in regards to cessation Plan: - ROXIE - Increase lactulose to 30mL po BID - Add Xifaxan 550mg po BID - Await AMA - Ammonia in the am - Supportive care - Patient seen and examined by Dr. Rowley and myself and this note is written on his behalf. (Michelle Lagos) Physician Comments Patient was seen and examined, agree with above note and plan, watch for DT. ( Iris Rowley MD) Michelle Lagos Sep 26, 2016 13:28 Iris Rowley MD Sep 27, 2016 07:46
[2016-09-26 15:03] LABS: BANDS 2 % (0-6); BASOPHILS 1 % (0-2); EOSINOPHILS 3 % (0-4); METAMYELOCYTES 1 % (0-1); MYELOCYTES 2 % (0-0); NEUTROPHIL # MANUAL DIFF 2.9 TH/MM3 (1.8-7.7); PLATELET ESTIMATE SMEAR LOW (NORMAL); PLATELET MORPHOLOGY NORMAL (NORMAL); POLYS (SEG NEUTROPHILS) 72 % (16-70); SCAN/DIFF FINAL DIFF MANUAL; WBC DIFF SAMPLE 100
[2016-09-26] MEDS: SODIUM CHLOR 0.9% 1000 ML INJ 1,000 ML IV SCH (17:51)
[2016-09-26] MEDS: RIFAXIMIN 550 MG TAB PO SCH (22:42)
[2016-09-27 04:30] VITALS: BP 115/72; PULSE 89; RESP 20; TEMP 97.6; O2SAT 98
[2016-09-27 06:26] LABS: AUTOMATED NEUTROPHIL # 2.6 TH/MM3 (1.8-7.7); BASOPHIL % 0.9 % (0.0-2.0); EOSINOPHIL # 0.1 TH/MM3 (0-0.4); EOSINOPHIL % 1.2 % (0.0-4.0); HEMO FLAGS DIFF FINAL; LYMPH % 23.6 % (9.0-44.0); MEAN CELL VOLUME 106.6 FL (80.0-100.0); MEAN CORPUSCULAR HEMOGLOBIN 35.8 PG (27.0-34.0); MEAN CORPUSCULAR HGB CONC 33.6 % (32.0-36.0); MONO % 14.9 % (0.0-8.0); NEUT % 59.4 % (16.0-70.0); PLATELET COUNT 101 TH/MM3 (150-450); RED CELL DISTRIBUTION WIDTH 15.1 % (11.6-17.2); WHITE BLOOD COUNT 4.4 TH/MM3 (4.0-11.0)
[2016-09-27 06:52] LABS: ALKALINE PHOSPHATASE 154 U/L (45-117); ALT (GPT) 159 U/L (10-53); ANION GAP 9 MEQ/L (5-15); AST (GOT) 357 U/L (15-37); BICARBONATE 27.3 MEQ/L (21.0-32.0); BLOOD UREA NITROGEN 4 MG/DL (7-18); GLOMERULAR FILTRATION RATE 113 ML/MIN (>89); POTASSIUM 2.7 MEQ/L (3.5-5.1); SODIUM (NA) 144 MEQ/L (136-145); TOTAL BILIRUBIN ADULT 2.9 MG/DL (0.2-1.0)
[2016-09-27 06:56] LABS: CHLORIDE 108 MEQ/L (98-107)
[2016-09-27 07:23] VITALS: BP 116/71; PULSE 89; RESP 18; TEMP 98.1; O2SAT 93
--- NOTE | 2016-09-27 09:29 | HHI.PR ---
Subjective Remarks Follow up Transaminitis/Intractable nausea and vomiting/alcohol abuse 09/25/16-patient seen and examined; she did tolerate clears last night. alert and oriented x 3; no acute event overnight. Afebrile 09/26/16-patient seen and examined;. Of confusion overnight and agitation for which she was given Ativan. This morning patient's lethargic however arousable. Afebrile. 09/27/16-patient seen and examined in the presence of her daughter Dr. Cabrera; she is alert and oriented 3 more complained of some generalized weakness otherwise stable. Tolerating by mouth without any competition nausea and vomiting. Objective Vitals Vital Signs Date Time Temp Pulse Resp B/P Pulse Ox O2 Delivery O2 Flow Rate FiO2 09/27/16 07:23 98.1 89 18 116/71 93 09/27/16 04:30 97.6 89 20 115/72 98 09/26/16 23:57 98.2 93 18 115/71 98 09/26/16 19:39 98.0 102 20 125/76 97 09/26/16 15:58 98.2 95 16 136/80 98 09/26/16 11:48 97.9 90 16 124/75 96 I/O 09/26/16 09/26/16 09/26/16 09/27/16 09/27/16 09/27/16 07:00 15:00 23:00 07:00 15:00 23:00 Intake Total 344 ml 120 ml Balance 344 ml 120 ml Intake Oral 50 ml 120 ml IV Total 294 ml # Voids 1 1 # Bowel Movements 1 Result Diagram: 09/27/16 0551 09/27/16 0551 Imaging Last Impressions Gall Bladder Ultrasound 09/24/16 1452 Signed Impressions: Service Date/Time: Saturday, September 24, 2016 15:19 - CONCLUSION: Mildly heterogeneous liver. No focal findings. Miguelangel Hernandez MD Pelvis X-Ray 09/24/16 1220 Signed Impressions: Service Date/Time: Saturday, September 24, 2016 12:39 - CONCLUSION: 1. Degenerated disc at L5-S1. No acute abnormality. Vicente Grover MD Femur X-Ray 09/24/16 1220 Signed Impressions: Service Date/Time: Saturday, September 24, 2016 12:40 - CONCLUSION: 1. Normal examination of the left femur. Vicente Grover MD Objective Remarks GENERAL: NAD SKIN: Warm and dry. HEAD: Normocephalic. EYES: No scleral icterus. No injection or drainage. NECK: Supple, trachea midline. No JVD or lymphadenopathy. CARDIOVASCULAR: Regular rate and rhythm without murmurs, gallops, or rubs. RESPIRATORY: Breath sounds equal bilaterally. No accessory muscle use. GASTROINTESTINAL: Abdomen soft, non-tender, nondistended. MUSCULOSKELETAL: No cyanosis, or edema. BACK: Nontender without obvious deformity. No CVA tenderness. A/P Problem List: (1) Transaminitis ICD Code: R74.0 Status: Acute (2) Alcohol abuse ICD Code: F10.10 Status: Acute (3) Nicotine dependence ICD Code: F17.200 Status: Chronic (4) Fall ICD Code: W19.XXXA Status: Acute (5) Metabolic acidosis ICD Code: E87.2 Status: Acute (6) Hyperammonemia ICD Code: E72.20 Status: Acute Assessment and Plan 61-year-old female with 1-Transaminitis: Patient with a history of Heavy alcohol abuse, abdominal ultrasound negative. Appreciate input from Gastroenterology. ASMA and PARAM noted pending AMA, hepatitis panel negative. Continue conservative treatment 2-Intractable nausea and vomiting: Resolved. Abdominal ultrasound unremarkable. Continue with healthy diet and Gentle IV fluid hydration. Treatment with antiemetic 3-Alcohol abuse: Counseled to quit, continue Rally pack, CIWS per protocol, seizure precaution 4-Tobacco abuse: Counseled to quit, on nicotinic patch 5-Fall: s/p Mechanical fall. Pelvic and femur x-ray without any finding of fracture. PT to treat and fall precaution 6-Hypokalemia: Give potassium 75 mEq 1 now and repeat K today 7-Metabolic acidosis: Resolved 8-GERD: PPI 9-DVT prophylaxis: Bilateral SCDs 10-Mild Hyperammonemia: Now on lactulose 30 mg twice a day as well as Xifaxan 550 mg twice a day and monitor ammonia level Discharge Planning Likely discharge 09/28/16 Problem Qualifiers (1) Fall: Qualified Code: W19.XXXA - Fall, initial encounter Emeka Silva MD Sep 27, 2016 09:29
[2016-09-27] MEDS ORDERED: POTASSIUM CHLORIDE 25 MEQ EFFERVESCENT TAB PO ONE (09:30)
[2016-09-27] MEDS: SODIUM CHLORIDE 0.9% FLUSH 5 ML FLUSH IV FLUSH SCH ×2 (10:01→21:09)
[2016-09-27] MEDS: MULTIVITAMINS/MINERALS THERAPEUTIC TAB PO SCH (10:03)
[2016-09-27] MEDS: LACTULOSE SYRUP 20 GM/30 ML CUP PO SCH ×2 (10:03→21:08)
[2016-09-27] MEDS: RIFAXIMIN 550 MG TAB PO SCH ×4 (10:04→21:08)
[2016-09-27] MEDS: PANTOPRAZOLE SODIUM 40 MG VIAL IV PUSH SCH (10:06)
[2016-09-27] MEDS: NICOTINE 21 MG/24 HR PATCH TD SCH (10:07)
[2016-09-27] MEDS: FOLIC ACID 1 MG TAB PO SCH (10:12)
--- NOTE | 2016-09-27 10:56 | HHI.GIFU ---
Subjective Remarks Resting in bed. Much improved today as far as mental status. Lethargic, but oriented x 3. Still a little "wobbly" on her feet. No n/v. No abdominal pain. (Michelle Lagos) Objective Vitals I&O Vital Signs Date Time Temp Pulse Resp B/P Pulse Ox O2 Delivery O2 Flow Rate FiO2 09/27/16 07:23 98.1 89 18 116/71 93 09/27/16 04:30 97.6 89 20 115/72 98 09/26/16 23:57 98.2 93 18 115/71 98 09/26/16 19:39 98.0 102 20 125/76 97 09/26/16 15:58 98.2 95 16 136/80 98 09/26/16 11:48 97.9 90 16 124/75 96 I/O 09/26/16 09/26/16 09/26/16 09/27/16 09/27/16 09/27/16 07:00 15:00 23:00 07:00 15:00 23:00 Intake Total 344 ml 120 ml Balance 344 ml 120 ml Intake Oral 50 ml 120 ml IV Total 294 ml # Voids 1 1 # Bowel Movements 1 Laboratory Laboratory Tests Test 09/26/16 09/27/16 10:56 05:51 White Blood Count 3.8 4.4 Red Blood Count 3.40 3.00 Hemoglobin 12.2 10.8 Hematocrit 36.4 32.0 Mean Corpuscular Volume 107.3 106.6 Mean Corpuscular Hemoglobin 35.9 35.8 Mean Corpuscular Hemoglobin 33.5 33.6 Concent Red Cell Distribution Width 15.0 15.1 Platelet Count 85 101 Mean Platelet Volume 10.4 10.0 Neutrophils (%) (Auto) 65.0 59.4 Lymphocytes (%) (Auto) 20.0 23.6 Monocytes (%) (Auto) 12.4 14.9 Eosinophils (%) (Auto) 1.7 1.2 Basophils (%) (Auto) 0.9 0.9 Neutrophils # (Auto) 2.5 2.6 Lymphocytes # (Auto) 0.8 1.0 Monocytes # (Auto) 0.5 0.7 Eosinophils # (Auto) 0.1 0.1 Basophils # (Auto) 0.0 0.0 CBC Comment AUTO DIFF DIFF FINAL Differential Total Cells 100 Counted Neutrophils % (Manual) 72 Band Neutrophils % 2 Lymphocytes % 12 Monocytes % 7 Eosinophils % 3 Basophils % 1 Neutrophils # (Manual) 2.9 Metamyelocytes 1 Myelocytes 2 Differential Comment FINAL DIFF MANUAL Platelet Estimate LOW Platelet Morphology Comment NORMAL Sodium Level 144 Potassium Level 2.7 Chloride Level 108 Carbon Dioxide Level 27.3 Anion Gap 9 Blood Urea Nitrogen 4 Creatinine 0.55 Estimat Glomerular Filtration 113 Rate Random Glucose 136 Calcium Level 8.5 Total Bilirubin 2.9 Aspartate Amino Transf 357 (AST/SGOT) Alanine Aminotransferase 159 (ALT/SGPT) Alkaline Phosphatase 154 Ammonia 35 Total Protein 5.4 Albumin 2.3 Imaging Last Impressions Gall Bladder Ultrasound 09/24/16 1452 Signed Impressions: Service Date/Time: Saturday, September 24, 2016 15:19 - CONCLUSION: Mildly heterogeneous liver. No focal findings. Miguelangel Hernandez MD Pelvis X-Ray 09/24/16 1220 Signed Impressions: Service Date/Time: Saturday, September 24, 2016 12:39 - CONCLUSION: 1. Degenerated disc at L5-S1. No acute abnormality. Vicente Grover MD Femur X-Ray 09/24/16 1220 Signed Impressions: Service Date/Time: Saturday, September 24, 2016 12:40 - CONCLUSION: 1. Normal examination of the left femur. Vicente Grover MD Physical Exam HEENT: Normocephalic; atraumatic; jaundice. Throat is clear. CHEST: CTA CARDIAC: Regular rate and rhythm with no murmur gallop or rubs. ABDOMEN: Soft, nondistended, nontender; hepatosplenomegaly; bowel sounds are present in all four quadrants. EXTREMITIES: No clubbing, cyanosis, or edema. SKIN: Normal; no rash; no jaundice. 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 (Michelle Lagos [facility]) Assessment and Plan Plan ASSESSMENT: - AMS, likely multifactorial- combination of hepatic encephalopathy and DTs. IMPROVED. Ammonia was 35 yesterday. She is much better with increased dose of Lactulose to BID and Xifaxan. DT precautions per primary - Alcoholic hepatitis, elevated lfts. Pt with hx of chronic heavy alcohol intake presents to [facility] for intractable nausea and vomiting. Reports heavy alcohol intake for the past 8 months. averages 1/3 of a 2L vodka bottle daily. Gall Bladder Ultrasound (09/24/16)---> Mildly heterogeneous liver. Hepatitis negative. PARAM negative, AMA pending, ASMA negative. LFTs improving, T. Bili 2.9, AST 357, ALT 159, Alk Phosph 154 - N/V. Resolved. - Hypokalemia per attending - Alcohol abuse- counselled in regards to cessation Plan: - ROXIE - Cont. Lactulose 30mL po BID - Cont. Xifaxan 550mg po BID - Await AMA - Complete ETOH Cessation - Pt improving. Cont. current treatment. GI will sign off, please call if needed - Patient seen and examined by Dr. Rowley and myself and this note is written on his behalf. (Michelle Lagos) Physician Comments patient was seen and examined, agree with above note, supportive care, need to start Rehab, we will FU as needed. (Iris Rowley MD) Michelle Lagos Sep 27, 2016 10:56 Iris Rowley MD Sep 27, 2016 11:55
[2016-09-27 11:37] VITALS: BP 118/76; PULSE 99; RESP 18; TEMP 98; O2SAT 94
[2016-09-27] MEDS: THIAMINE HCL 100 MG TAB PO SCH (12:17)
[2016-09-27 16:21] VITALS: BP 107/76; PULSE 101; RESP 18; TEMP 98.2; O2SAT 95
[2016-09-27] MEDS: SODIUM CHLOR 0.9% 1000 ML INJ 1,000 ML IV SCH ×2 (18:08→20:30)
[2016-09-27 19:14] VITALS: BP 107/67; PULSE 78; RESP 20; TEMP 98.8; O2SAT 98
[2016-09-27 23:34] VITALS: BP 113/71; PULSE 90; RESP 17; TEMP 98.3; O2SAT 94
[2016-09-28 03:54] LABS: MITOCHONDRIAL ABS LESS THAN 20.0 U (())
[2016-09-28 07:52] VITALS: BP 114/73; PULSE 81; RESP 18; TEMP 98.3; O2SAT 93
[2016-09-28 07:52] LABS: MAGNESIUM 1.5 MG/DL (1.5-2.5)
[2016-09-28 07:54] LABS: ALKALINE PHOSPHATASE 158 U/L (45-117); ALT (GPT) 151 U/L (10-53); ANION GAP 8 MEQ/L (5-15); AST (GOT) 265 U/L (15-37); BICARBONATE 26.2 MEQ/L (21.0-32.0); BLOOD UREA NITROGEN 5 MG/DL (7-18); CHLORIDE 109 MEQ/L (98-107); GLOMERULAR FILTRATION RATE 113 ML/MIN (>89); POTASSIUM 3.6 MEQ/L (3.5-5.1); SODIUM (NA) 143 MEQ/L (136-145); TOTAL BILIRUBIN ADULT 2.8 MG/DL (0.2-1.0)
--- NOTE | 2016-09-28 09:27 | HHI.PR ---
Subjective Remarks Follow-up for hepatic encephalopathy and ataxia. The patient is seen with her daughter, who is an core loader, at bedside. The patient continues to improve. She states tremors are improved. She denies any nausea or vomiting and is tolerating diet. She still has a tough time ambulating, feels uncoordinated. Plans to go back to [facility] at discharge. She states her at home has been helping her transfer from the wheelchair to commode. Plans to continue abstinence from alcohol. Having loose stools on lactulose, about 9 yesterday, discussed with the patient and daughter, okay to skip evening dose if at least 3 loose stools with morning dose. Still needing some help to get to the bedside commode. Objective Vitals Vital Signs Date Time Temp Pulse Resp B/P Pulse Ox O2 Delivery O2 Flow Rate FiO2 09/28/16 07:52 98.3 81 18 114/73 93 09/27/16 23:34 98.3 90 17 113/71 94 09/27/16 19:14 98.8 78 20 107/67 98 09/27/16 16:21 98.2 101 18 107/76 95 09/27/16 11:37 98.0 99 18 118/76 94 I/O 09/27/16 09/27/16 09/27/16 09/28/16 09/28/16 09/28/16 07:00 15:00 23:00 07:00 15:00 23:00 Intake Total 120 ml 480 ml Balance 120 ml 480 ml Intake Oral 120 ml 480 ml # Voids 1 1 # Bowel Movements 1 2 Result Diagram: 09/27/16 0551 09/28/16 0723 Imaging Last Impressions Gall Bladder Ultrasound 09/24/16 1452 Signed Impressions: Service Date/Time: Saturday, September 24, 2016 15:19 - CONCLUSION: Mildly heterogeneous liver. No focal findings. Miguelangel Hernandez MD Pelvis X-Ray 09/24/16 1220 Signed Impressions: Service Date/Time: Saturday, September 24, 2016 12:39 - CONCLUSION: 1. Degenerated disc at L5-S1. No acute abnormality. Vicente Grover MD Femur X-Ray 09/24/16 1220 Signed Impressions: Service Date/Time: Saturday, September 24, 2016 12:40 - CONCLUSION: 1. Normal examination of the left femur. Vicente Grover MD Objective Remarks GENERAL: Well-developed well-nourished. In no acute distress. SKIN: Warm and dry. No lesions noted. HEENT: Normocephalic. Pupils equal and round. Mucous membranes pink and moist. CARDIOVASCULAR: Regular rate and rhythm. No murmur appreciated. RESPIRATORY: No accessory muscle use. Clear to auscultation. Breath sounds equal bilaterally. GASTROINTESTINAL: Abdomen soft, non-tender, nondistended. Bowel sounds x4. MUSCULOSKELETAL: No obvious deformities. No clubbing or cyanosis. No edema. NEUROLOGICAL: Awake and alert. No focal neurological deficits. Moves upper and lower extremities spontaneously. Normal speech. No tremors. Finger-nose a little slow but coordinated. PSYCHIATRIC: Appropriate mood and affect; insight and judgment normal. A/P Problem List: (1) Transaminitis ICD Code: R74.0 Status: Acute (2) Alcohol abuse ICD Code: F10.10 Status: Acute (3) Nicotine dependence ICD Code: F17.200 Status: Chronic (4) Fall ICD Code: W19.XXXA Status: Acute (5) Metabolic acidosis ICD Code: E87.2 Status: Acute (6) Hyperammonemia ICD Code: E72.20 Status: Acute Assessment and Plan 61-year-old female with 1-Transaminitis: Patient with a history of Heavy alcohol abuse, abdominal ultrasound negative. Appreciate input from Gastroenterology, signed off. ASMA AMA, and PARAM noted, hepatitis panel negative. Continue conservative treatment. 2-Intractable nausea and vomiting: Resolved. Abdominal ultrasound unremarkable. Continue with healthy diet. DC IVF. Antiemetics as needed. 3-Alcohol abuse: Counseled to continue cessation, continue Rally pack, CIWS per protocol, seizure precaution 4-Tobacco abuse: Counseled, on nicotinic patch 5-Fall: s/p Mechanical fall. Pelvic and femur x-ray without any finding of fracture. PT initially recommended SNF 09/25, awaiting reevaluation. May need walker. 6-Hypokalemia: Potassium was 2.7, given oral replacement, now 3.6. Resolved. 7-Metabolic acidosis: Resolved 8-GERD: PPI 9-DVT prophylaxis: Bilateral SCDs 10-Mild Hyperammonemia: Lactulose once or twice a day for at least 2 loose stools. Also started on Xifaxan 550 mg twice a day. Improved. 11-hypophosphatemia: Potassium 0.4. Give IV and by mouth replacement. Written by Dillon Meng, acting as scribe for Dr. Patiño on 09/28/16 at 09:27. The documentation accurately reflects the work performed [id number] by me on at 0927. Discharge Planning Follow-up PT reevaluation and recommendations. Case management consult for assistance with discharge needs. Will go back to [facility] for detox [facility] [place]. Problem Qualifiers (1) Fall: Qualified Code: W19.XXXA - Fall, initial encounter Dillon Meng Sep 28, 2016 09:27 Jean Carlos Patiño MD Sep 28, 2016 14:57
[2016-09-28] MEDS ORDERED: POTASSIUM PHOSPHATE INJ 30 MMOL in SODIUM CHLOR 0.9% 250 ML INJ 250 ML IV ONE (10:00)
[2016-09-28] MEDS: SODIUM CHLORIDE 0.9% FLUSH 5 ML FLUSH IV FLUSH SCH ×2 (10:25→21:00)
[2016-09-28] MEDS: NICOTINE 21 MG/24 HR PATCH TD SCH (10:25)
[2016-09-28] MEDS: THIAMINE HCL 100 MG TAB PO SCH (10:26)
[2016-09-28] MEDS: LACTULOSE SYRUP 20 GM/30 ML CUP PO SCH ×2 (10:26→21:00)
[2016-09-28] MEDS: PANTOPRAZOLE SOD 20 MG DELAYED RELEASE TAB PO SCH (10:26)
[2016-09-28] MEDS: RIFAXIMIN 550 MG TAB PO SCH ×2 (10:26→22:32)
[2016-09-28] MEDS: FOLIC ACID 1 MG TAB PO SCH (10:26)
[2016-09-28] MEDS: POTASSIUM PHOSPHATE MONOBASIC 500 MG TAB PO SCH ×2 (10:33→22:32)
[2016-09-28] MEDS: MULTIVITAMINS/MINERALS THERAPEUTIC TAB PO SCH (10:35)
[2016-09-28 12:14] VITALS: BP 116/71; PULSE 86; RESP 18; TEMP 98.4; O2SAT 95
[2016-09-28 14:57] VITALS: BP 108/69; PULSE 92; RESP 18; TEMP 98.7; O2SAT 97
[2016-09-28 19:50] VITALS: BP 122/65; PULSE 85; RESP 20; TEMP 99.3; O2SAT 99
[2016-09-28 23:39] VITALS: BP 115/63; PULSE 88; RESP 20; TEMP 98.4; O2SAT 96
[2016-09-29 04:21] VITALS: BP 120/69; PULSE 86; RESP 20; TEMP 97.5; O2SAT 96
[2016-09-29 06:25] LABS: BICARBONATE 26.4 MEQ/L (21.0-32.0); MAGNESIUM 1.4 MG/DL (1.5-2.5); POTASSIUM 3.4 MEQ/L (3.5-5.1)
[2016-09-29] MEDS: SODIUM CHLORIDE 0.9% FLUSH 5 ML FLUSH IV FLUSH SCH (08:09)
[2016-09-29] MEDS: FOLIC ACID 1 MG TAB PO SCH (08:10)
[2016-09-29] MEDS: RIFAXIMIN 550 MG TAB PO SCH (08:11)
[2016-09-29] MEDS: PANTOPRAZOLE SOD 20 MG DELAYED RELEASE TAB PO SCH (08:11)
[2016-09-29] MEDS: POTASSIUM PHOSPHATE MONOBASIC 500 MG TAB PO SCH (08:11)
[2016-09-29] MEDS: NICOTINE 21 MG/24 HR PATCH TD SCH (08:11)
[2016-09-29] MEDS: LACTULOSE SYRUP 20 GM/30 ML CUP PO SCH (08:11)
[2016-09-29] MEDS: MULTIVITAMINS/MINERALS THERAPEUTIC TAB PO SCH (08:11)
[2016-09-29] MEDS: THIAMINE HCL 100 MG TAB PO SCH (08:11)
[2016-09-29 08:26] VITALS: BP 100/64; PULSE 92; RESP 16; TEMP 98; O2SAT 98
--- NOTE | 2016-09-29 09:15 | HHI.PR ---
Subjective Remarks Follow-up for hepatic encephalopathy and ataxia. The patient is seen with her daughter at bedside. The patient and daughter are concerned of infection at the Left AC IV site, reporting warmth/erythema/induration with some yellow drainage output today. The patient reports feeling better each day. She states she was able to walk the entire unit with the help of her daughter and using a walker. She feels her gait is more stable today. She is oriented x4. She is able to eat well yesterday and today, no further nausea/vomiting. The patient is adamant that she plans to stay away from alcohol. The patient really wants to go home to shower prior to going to [facility], the patient's daughter is agreeable to this. Objective Vitals Vital Signs Date Time Temp Pulse Resp B/P Pulse Ox O2 Delivery O2 Flow Rate FiO2 09/29/16 08:26 98.0 92 16 100/64 98 09/29/16 04:21 97.5 86 20 120/69 96 09/28/16 23:39 98.4 88 20 115/63 96 09/28/16 19:50 99.3 85 20 122/65 99 09/28/16 14:57 98.7 92 18 108/69 97 09/28/16 12:14 98.4 86 18 116/71 95 I/O 09/28/16 09/28/16 09/28/16 09/29/16 09/29/16 09/29/16 07:00 15:00 23:00 07:00 15:00 23:00 # Bowel Movements 1 Result Diagram: 09/27/16 0551 09/29/16 0515 Imaging Last Impressions Gall Bladder Ultrasound 09/24/16 1452 Signed Impressions: Service Date/Time: Saturday, September 24, 2016 15:19 - CONCLUSION: Mildly heterogeneous liver. No focal findings. Miguelangel Hernandez MD Pelvis X-Ray 09/24/16 1220 Signed Impressions: Service Date/Time: Saturday, September 24, 2016 12:39 - CONCLUSION: 1. Degenerated disc at L5-S1. No acute abnormality. Vicente Grover MD Femur X-Ray 09/24/16 1220 Signed Impressions: Service Date/Time: Saturday, September 24, 2016 12:40 - CONCLUSION: 1. Normal examination of the left femur. Vicente Grover MD Objective Remarks GENERAL: Well-nourished, well-developed female patient in NAD. SKIN: Warm and dry. Left AC prior IV site with superficial warmth/erythema/ induration, no active drainage. HEAD: Normocephalic. Atraumatic. EYES: Pupils equal and round. No scleral icterus. No injection or drainage. NECK: Supple. Trachea midline. CARDIOVASCULAR: Regular rate and rhythm. S1, S2 noted. No murmur appreciated. RESPIRATORY: No accessory muscle use. Clear to auscultation. Breath sounds equal bilaterally. GASTROINTESTINAL: Abdomen soft, non-tender, nondistended. Normoactive bowel sounds x4. MUSCULOSKELETAL: No obvious deformities. Extremities without clubbing, cyanosis , or edema. NEUROLOGICAL: Awake and alert, oriented x4. No obvious cranial nerve deficits. Motor grossly within normal limits. Normal speech. PSYCHIATRIC: Appropriate mood and affect; insight and judgment normal. Medications and IVs Current Medications Medications (Trade) Dose Ordered Sig/Regina Route Start Time Stop Time Status Last Admin (Tylenol) 650 mg Q4H PRN PO 09/24/16 17:30 (Zofran Inj) 4 mg Q6H PRN IVP 09/24/16 17:30 09/27/16 18:29 (Tylenol) 650 mg Q6H PRN PO 09/24/16 17:30 (Narcan Inj) 0.4 mg UNSCH PRN IV 09/24/16 17:30 (Habitrol 21 Mg Patch.24 Hr) 1 patch DAILY TD 09/24/16 19:00 09/29/16 08:11 (NS Flush) 2 ml UNSCH PRN IV FLUSH 09/24/16 17:30 (NS Flush) 2 ml BID IV FLUSH 09/24/16 21:00 09/28/16 10:25 (Folate) 1 mg DAILY PO 09/25/16 09:00 09/30/16 08:59 09/29/16 08:10 (Vitamin B1) 100 mg DAILY PO 09/25/16 09:00 09/29/16 08:11 (Theragran M Tab) 1 tab DAILY PO 09/25/16 09:00 09/30/16 08:59 09/29/16 08:11 (Catapres) 0.1 mg Q6H PRN PO 09/24/16 17:30 (Ativan) 1 mg Q4H PRN PO 09/24/16 17:30 09/26/16 04:03 (Ativan Inj) 1 mg Q4H PRN IV PUSH 09/24/16 17:30 (Ativan) 2 mg Q2H PRN PO 09/24/16 17:30 (Ativan Inj) 2 mg Q2H PRN IV PUSH 09/24/16 17:30 09/26/16 09:38 (Ativan Inj) 2 mg Q1H PRN IV PUSH 09/24/16 17:30 (Ativan Inj) 2 mg Q15M PRN IV PUSH 09/24/16 17:30 (Lactulose Liq) 30 ml BID PO 09/26/16 21:00 09/29/16 08:11 (Xifaxan) 550 mg BID PO 09/26/16 21:00 09/29/16 08:11 (Protonix) 20 mg DAILY PO 09/28/16 09:00 09/29/16 08:11 (K-Phos) 1,000 mg Q12HR PO 09/28/16 10:00 09/29/16 08:11 (Keflex) 250 mg Q6HR PO 09/29/16 12:00 (KCl) 20 meq DAILY PO 09/29/16 10:00 (Mag-Ox) 400 mg DAILY PO 09/29/16 10:00 Urinary Catheter: No Vascular Central Line Catheter: No A/P Problem List: (1) Transaminitis ICD Code: R74.0 Status: Acute (2) Alcohol abuse ICD Code: F10.10 Status: Acute (3) Nicotine dependence ICD Code: F17.200 Status: Chronic (4) Fall ICD Code: W19.XXXA Status: Acute (5) Metabolic acidosis ICD Code: E87.2 Status: Acute (6) Hyperammonemia ICD Code: E72.20 Status: Acute Assessment and Plan 61-year-old female with Transaminitis: Patient with a hx of Heavy alcohol abuse, abdominal U/S negative. Appreciate input from Gastroenterology, signed off. ASMA AMA, and PARAM noted, hepatitis panel negative. Continue conservative treatment. Outpatient f/ up with gastroenterology. Alcohol cessation. Intractable nausea and vomiting: Resolved. Abdominal ultrasound unremarkable. Continue with healthy diet. DC IVF. Antiemetics as needed. Alcohol abuse: Counseled to continue cessation, continue Rally pack, CIWS per protocol, seizure precaution Tobacco abuse: Counseled, on nicotine patch. Fall: s/p Mechanical fall. Pelvic and femur x-ray without any finding of fracture. PT initially recommended SNF 09/25, however patient now ambulating the unit with the walker, asked PT for re-evaluation. Hypokalemia: Potassium was 2.7, given oral replacement, now 3.4 today, given additional po KCl replacement. Metabolic acidosis: Resolved GERD: PPI Mild Hyperammonemia: Lactulose once or twice a day for at least 2 loose stools. Also started on Xifaxan 550 mg twice a day. Improved. Hypophosphatemia: Potassium 0.4. Given IV and po replacement, improving, now 1.4, continue po replacement Hypomagnesemia: Mag 1.4, given Mag Ox po. Superficial Thrombophlebitis with Secondary Cellulitis: at Left AC IV site. IV removed. Patient with some induration/erythema, will start on po Keflex 250mg q6h [id number]. Warm compresses. Elevation. DVT prophylaxis: Bilateral SCDs Written by Carmela Garza, acting as scribe for Dr. Patiño on 09/29/16 at 09:10. The documentation accurately reflects the work performed [id number] by me on at 0910 Discharge Planning Possible discharge today after repeat PT eval. Problem Qualifiers (1) Fall: Qualified Code: W19.XXXA - Fall, initial encounter Carmela Garza PA-C Sep 29, 2016 09:15 Jean Carlos Patiño MD Sep 30, 2016 06:06
[2016-09-29] MEDS ORDERED: MAGNESIUM OXIDE 400 MG TAB PO SCH (10:00)
[2016-09-29] MEDS ORDERED: POTASSIUM CHLORIDE 20 MEQ CONTROLLED RELEASE TAB PO SCH (10:00)
[2016-09-29] MEDS ORDERED: CEPH250C PO (11:51)
[2016-09-29] MEDS ORDERED: MUPI2OIN TOPICAL (11:51)
[2016-09-29] MEDS ORDERED: VITA100T2 PO (11:51)
[2016-09-29] MEDS ORDERED: LACT10SO PO (11:51)
[2016-09-29] MEDS ORDERED: XIFA550T4 PO (11:51)
[2016-09-29] MEDS ORDERED: THERM PO (11:51)
[2016-09-29] MEDS ORDERED: K-PHTAB PO (11:51)
--- NOTE | 2016-09-29 11:52 | HHI.DCPOC ---
Discharge Care Plan Diagnosis: (1) Fall (2) Alcohol abuse (3) Transaminitis (4) Hyperammonemia Goals to Promote Your Health * To prevent worsening of your condition and complications * To maintain your health at the optimal level Directions to Meet Your Goals Take your medications as prescribed Follow your dietary instruction Follow activity as directed Keep your appointments as scheduled Take your immunizations and boosters as scheduled If your symptoms worsen call your PCP, if no PCP go to Urgent Care Center or Emergency Room Smoking is Dangerous to Your Health. Avoid second hand smoke Call the 24-hour hour crisis hotline for domestic abuse at Carmela Garza PA-C Sep 29, 2016 11:52
[2016-09-29] MEDS ORDERED: WALKER WHEELS/F1 MIS (11:54)
[2016-09-29] MEDS ORDERED: MUPIROCIN 2% OINT 22 GM TUBE TOPICAL SCH (12:00)
[2016-09-29] MEDS ORDERED: CEPHALEXIN MONOHYDRATE 250 MG CAP PO SCH (12:00)
--- NOTE | 2016-09-29 12:20 | HHI.DS ---
Discharge Summary Admission Date Sep 24, 2016 at 14:54 Discharge Date: Sep 29, 2016 Admitting Diagnosis falls, vomiting, alcohol abuse, transaminitis (1) Transaminitis ICD Code: R74.0 Diagnosis: Principal (2) Alcohol abuse ICD Code: F10.10 Diagnosis: Principal (3) Nicotine dependence ICD Code: F17.200 Diagnosis: Secondary (4) Fall ICD Code: W19.XXXA Diagnosis: Principal (5) Metabolic acidosis ICD Code: E87.2 Diagnosis: Secondary (6) Hyperammonemia ICD Code: E72.20 Diagnosis: Principal (7) Hepatic encephalopathy ICD Code: K72.90 Diagnosis: Principal (8) Gait instability ICD Code: R26.81 Diagnosis: Secondary (9) Generalized weakness ICD Code: R53.1 Diagnosis: Secondary Procedures No procedures performed to the patient. Brief History - From Admission 61-year-old female with a history of chronic alcohol abuse, GERD was brought to the ED from [facility] for evaluation of intractable nausea and vomiting several days with associated abdominal pain and noticeable jaundice as well as a fall. Patient reports maybe alcohol intake over the past 8 months and average drink 1/3 of a 2L vodka bottle daily. She states, she fell sometimes today off her bed and landing on her right side. She denies any LOC or head trauma.Since admission to the she has not been drinking any alcohol and this over the past 4-5 days. She has had significant weight loss. Currently she denies any hematemesis, hematochezia or melena. Labs in the ED reveals Labs revealed Bili of 4.7, AST 389, [id number], ALP 175 fotr which gastroenterology has been consulted CBC/BMP: 09/27/16 0551 09/29/16 0515 Significant Findings Laboratory Tests Test 09/27/16 09/28/16 09/29/16 05:51 07:23 05:15 Red Blood Count 3.00 MIL/MM3 (4.00-5.30) Hemoglobin 10.8 GM/DL (11.6-15.3) Hematocrit 32.0 % (35.0-46.0) Mean Corpuscular Volume 106.6 FL (80.0-100.0) Mean Corpuscular Hemoglobin 35.8 PG (27.0-34.0) Platelet Count 101 TH/MM3 (150-450) Monocytes (%) (Auto) 14.9 % (0.0-8.0) Potassium Level 2.7 MEQ/L 3.4 MEQ/L (3.5-5.1) (3.5-5.1) Chloride Level 108 MEQ/L 109 MEQ/L (98-107) (98-107) Blood Urea Nitrogen 4 MG/DL (7-18) 5 MG/DL (7-18) 6 MG/DL (7-18) Random Glucose 136 MG/DL 118 MG/DL 148 MG/DL (74-106) (74-106) (74-106) Total Bilirubin 2.9 MG/DL 2.8 MG/DL (0.2-1.0) (0.2-1.0) Aspartate Amino Transf 357 U/L (15-37) 265 U/L (15-37) (AST/SGOT) Alanine Aminotransferase 159 U/L (10-53) 151 U/L (10-53) (ALT/SGPT) Alkaline Phosphatase 154 U/L 158 U/L (45-117) (45-117) Ammonia 35 MCMOL/L 43 MCMOL/L (11-32) (11-32) Total Protein 5.4 GM/DL 5.3 GM/DL (6.4-8.2) (6.4-8.2) Albumin 2.3 GM/DL 2.2 GM/DL (3.4-5.0) (3.4-5.0) Calcium Level 8.4 MG/DL 7.9 MG/DL (8.5-10.1) (8.5-10.1) Phosphorus Level 0.4 MG/DL 1.8 MG/DL (2.5-4.9) (2.5-4.9) Vitamin B12 Level GREATER THAN 2000 PG/ML (193-986) Magnesium Level 1.4 MG/DL (1.5-2.5) Imaging Last Impressions Gall Bladder Ultrasound 09/24/16 3952 Signed Impressions: Service Date/Time: Saturday, September 24, 2016 15:19 - CONCLUSION: Mildly heterogeneous liver. No focal findings. Miguelangel Hernandez MD Pelvis X-Ray 09/24/16 1220 Signed Impressions: Service Date/Time: Saturday, September 24, 2016 12:39 - CONCLUSION: 1. Degenerated disc at L5-S1. No acute abnormality. Vicente Grover MD Femur X-Ray 09/24/16 1220 Signed Impressions: Service Date/Time: Saturday, September 24, 2016 12:40 - CONCLUSION: 1. Normal examination of the left femur. Vicente Grover MD PE at Discharge GENERAL: Well-nourished, well-developed female patient in NAD. SKIN: Warm and dry. Left AC prior IV site with superficial warmth/erythema/ induration, no active drainage. HEAD: Normocephalic. Atraumatic. EYES: Pupils equal and round. No scleral icterus. No injection or drainage. NECK: Supple. Trachea midline. CARDIOVASCULAR: Regular rate and rhythm. S1, S2 noted. No murmur appreciated. RESPIRATORY: No accessory muscle use. Clear to auscultation. Breath sounds equal bilaterally. GASTROINTESTINAL: Abdomen soft, non-tender, nondistended. Normoactive bowel sounds x4. MUSCULOSKELETAL: No obvious deformities. Extremities without clubbing, cyanosis , or edema. NEUROLOGICAL: Awake and alert, oriented x4. No obvious cranial nerve deficits. Motor grossly within normal limits. Normal speech. PSYCHIATRIC: Appropriate mood and affect; insight and judgment normal. Hospital Course 61-year-old female with: Hepatic Encephalopathy/Transaminitis: Patient with a hx of Heavy alcohol abuse. Abdominal U/S negative. Appreciate input from Gastroenterology, she was started on lactulose 30ml bid and Xifaxan 550mg bid, mentation much improved, GI now signed off. ASMA AMA, and PARAM negative, hepatitis panel negative. Outpatient f/ up with gastroenterology. Alcohol cessation. Gait Instability/Ataxia: secondary to fdc alcohol abuse. PT worked with her throughout stay, initially required rehab however now able to ambulate independently with a walker. Case management to assist with providing walker at discharge. PT as outpatient. Intractable nausea and vomiting: Resolved. Abdominal ultrasound unremarkable. Continue with healthy diet. DC IVF. Antiemetics as needed. Alcohol abuse: Counseled to continue cessation, continue Rally pack, CIWA per protocol, seizure precaution. Patient being discharged back to [facility] voluntarily at discharge. Tobacco abuse: Counseled, on nicotine patch. Fall: s/p Mechanical fall. Pelvic and femur x-ray without any finding of fracture. PT initially recommended SNF 09/25, however patient now ambulating the unit with the walker, asked PT for re-evaluation. Hypokalemia: Potassium was 2.7, given oral replacement, now 3.4 today, given additional po KCl replacement. Metabolic acidosis: Resolved GERD: PPI Mild Hyperammonemia: Lactulose once or twice a day for at least 2 loose stools. Also started on Xifaxan 550 mg twice a day. Improved, having 3+ loose bowel movements daily, mentation improved. AAOx4. Hypophosphatemia: Potassium 0.4. Given IV and po replacement, improving, now 1.4, continue po replacement at discharge. Hypomagnesemia: Mag 1.4, given Mag Ox po. Superficial Thrombophlebitis with Secondary Cellulitis: at Left AC IV site. IV removed. Patient with some induration/erythema, will start on po Keflex 250mg q6h [id number] and mupirocin ointment. Warm compresses. Elevation. DVT prophylaxis: Bilateral SCDs Discharge planning: Patient being discharged to the care of her daughter and with plan to shower at her home then go directly to [facility] for alcohol detox/rehab. Patient very motivated to stop drinking. Case management arranging for a walker prior to discharge. Written by Carmela Garza, acting as scribe for Dr. Patiño on 09/29/16 at 09:10. The documentation accurately reflects the work performed [id number] by me on at 0910 Pt Condition on Discharge: Stable Discharge Disposition: Disc to Psych Care Fac Discharge Time: > 30 minutes Discharge Instructions DIET: Follow Instructions for: As Tolerated, No Restrictions Activities you can perform: Regular-No Restrictions Follow up Referrals: Drug/Alcohol Rehab - Today with Chivo Camacho PCP Follow-up - 1 Week New Orders: Physical Therapy - 2-3 Days New Medications: Walker with Front Wheels (Walker with Front Wheels) 1 Mis Mis 1 EA .ROUTE DIRECTED #1 Ref 0 EA Cephalexin (Cephalexin) 250 Mg Cap 250 MG PO Q6HR cellulitis #40 CAP Lactulose Liq (Lactulose Liq) 10 Gm/15 Ml Soln 30 ML PO BID liver #100 ML Multiple Vitamins W/ Minerals (Thera M Plus) 1 Tab 1 TAB PO DAILY Electrolyte Replacement #30 TAB Mupirocin Topical (Mupirocin Topical) 2 % Oint 1 APPLIC TOPICAL Q12HR cellulitis #1 TUBE Potassium Phosphate Monobasic (K-Phos) 500 Mg Tab 1000 MG PO Q12HR Electrolyte Replacement #30 TAB Rifaximin (Xifaxan) 550 Mg Tab 550 MG PO BID liver #60 TAB Thiamine (Vitamin B-1) 100 Mg Tab 100 MG PO DAILY Electrolyte Replacement #30 TAB Continued Medications: Omeprazole (Omeprazole) 20 Mg Tab 20 MG PO DAILY #30 Ref 0 TAB Carmela Garza PA-C Sep 29, 2016 12:20 Jean Carlos Patiño MD Sep 30, 2016 06:08
[2016-09-29 12:49] VITALS: BP 112/70; PULSE 86; RESP 18; TEMP 98; O2SAT 97
== END 2016-09-29 15:01 | disposition home or self-care (01) ==
LOC: NEDAMB 12:18 → NEDA 14:54 → NEPHCDU 23:02
PROVIDERS: ADMIT Internal Medicine; ATTEND Internal Medicine
DX: R74.0 Nonspecific elevation of levels of transaminase and lactic acid dehydrogenase [LDH] (principal); F10.10 Alcohol abuse, uncomplicated; E87.2 Acidosis; E72.20 Disorder of urea cycle metabolism, unspecified; E87.6 Hypokalemia; E83.42 Hypomagnesemia; E83.39 Other disorders of phosphorus metabolism; F17.210 Nicotine dependence, cigarettes, uncomplicated; K21.9 Gastro-esophageal reflux disease without esophagitis; K70.10 Alcoholic hepatitis without ascites; K72.90 Hepatic failure, unspecified without coma; I80.9 Phlebitis and thrombophlebitis of unspecified site; L03.90 Cellulitis, unspecified; R29.6 Repeated falls; Z98.82 Breast implant status; W18.30XA Fall on same level, unspecified, initial encounter
CPT/HCPCS: 72170; 73552; 76705; 80048; 80053; 80074; 82140; 82607; 82746; 82948; 83520; 83735; 84100; 85007; 85025; 85027; 85610; 86038; 86256; 96360; 96361; 97110; 97116; 97163; 99285; C9113; G0378; G8987; G8988; J2060; J2405; J3480; J7030; J7050